=== PATIENT | female | born 1940 | race American Indian/Alaskan Native ===

== ENCOUNTER → 2017-01-30 | Outpatient (CLI) | payer MEDICARE, MEDICAID ==
[~2017-01-30] MED LIST: AMLO2.5T PO; ASCO500C2; BOSE125T PO; DABI150C PO; DIGO125T PO; FLUT16SP; FURO40TA6 PO; GABA100C8 PO; HYDR1TAB12; MAGN400T26; MELO-190; OMEP10CA2 PO; OXYC20TA42; POTA10CA PO; SILD20TA PO; WARF3TAB7; [UNRECOGNIZED DRUG - CODE]
== END | disposition home or self-care (01) ==
LOC: CFH 12:16
PROVIDERS: ATTEND Internal Medicine Cardiovascular Disease
DX: I27.2 Other secondary pulmonary hypertension (principal)
CPT/HCPCS: 93306

== ENCOUNTER → 2020-08-30 | Outpatient (CLI) | payer MEDICARE ==
[~2020-08-30] MED LIST changes: -AMLO2.5T PO; +AMLO2.5T5 PO; -DIGO125T PO; +DIGO125T85 PO; -FLUT16SP; +FLUT16SP24; +GABA-826 PO; -GABA100C8 PO; -HYDR1TAB12; +HYDR1TAB13; -MELO-190; +MELO7.5T31; +WARF3TAB52; -WARF3TAB7
== END | disposition home or self-care (01) ==
LOC: CVU 08:59
PROVIDERS: ATTEND Internal Medicine Cardiovascular Disease
DX: I08.3 Combined rheumatic disorders of mitral, aortic and tricuspid valves (principal); R06.02 Shortness of breath
CPT/HCPCS: 93306; 93356